=== PATIENT | male | born 1935 | race Caucasian/White ===

== ENCOUNTER 2017-07-11 06:46 | Emergency (ER) | payer MEDICARE, OTHER ==
[2017-07-11] MEDS ORDERED: Sodium Chloride 0.9% 1,000 ML IV ONE (07:40)
[2017-07-11] MEDS ORDERED: Metoprolol Succinate 25 MG Tab.ER PO ONE (07:42)
--- NOTE | 2017-07-11 07:52 | EDM.PDOC ---
<Sukhwinder Stoddard - Last Filed: 07/11/17 07:42> ED HPI GENERAL MEDICAL PROBLEM - General Chief Complaint: Abdominal Pain Stated Complaint: lower abd pain Time Seen by Provider: 07/11/17 07:39 Source of Information: Reports: Patient History Limitations: Reports: No Limitations - History of Present Illness INITIAL COMMENTS - FREE TEXT/NARRATIVE: Patient is a 82-year-old gentleman who presents to the emergency department this morning with a complaint of abdominal pain. Patient states that he developed periumbilical abdominal pain described as a bubble with pressure at 4 PM yesterday. Patient states that he normally has bowel movements 2-3 times a day, but has not had a bowel movement over 24 hours. Patient states that pain has gradually increased and he was unable to sleep during the night. Pain now extending to lower abdomen and left flank. Patient was concerned because this is not normal for him. Patient did have some nausea without vomiting. Patient denies fever, chest pain, shortness of breath, blood in stool, dysuria, or out of country travel. Onset: Gradual Onset Date: 07/10/17 Onset Time: 16:00 Duration: Hour(s): Location: Reports: Abdomen Quality: Reports: Ache, Other (Fullness) Improves with: Reports: None Worsens with: Reports: None Associated Symptoms: Reports: Nausea/Vomiting Left Upper Abdomen Pain Score (Numeric/FACES): 8 - Related Data Allergies Allergy/AdvReac Type Severity Reaction Status Date / Time [id number]-[id number] Reductase Allergy CONTRAINDIC Verified 07/11/17 06:49 Inhibitor ATION/INTOL ERANCE Home Meds: Home Meds Cholecalciferol (Vitamin D3) [Vitamin D3] 2,000 units PO DAILY 06/13/13 [History ] Ezetimibe [Zetia] 10 mg PO DAILY 06/13/13 [History] Finasteride [Proscar] 5 mg PO DAILY 06/13/13 [History] Lutein/Min/Vit C/Vit E Acetate [Ocuvite Lutein] 1 cap PO DAILY 06/13/13 [History ] Metoprolol Tartrate 12.5 mg PO BID 06/13/13 [History] Multivit-Min/FA/Lycopene/Lut [Centrum Silver] 1 each PO DAILY 06/13/13 [History] Nitroglycerin [Nitrostat] 0.4 mg SL ASDIRECTED PRN 06/13/13 [History] Tamsulosin [Flomax] 0.4 mg PO DAILY 06/13/13 [History] Aspirin 81 mg PO DAILY 06/29/17 [History] Diclofenac Sodium [IMW: Diclofenac Sodium] 75 mg PO .TWICE DAILY W MEALS [History] Iron Polysaccharide Complex [Poly-Iron] 150 mg PO DAILY 06/29/17 [History] Oxybutynin [Oxybutynin ER] 5 mg PO DAILY 06/29/17 [History] Bimatoprost [LUMIGAN 0.01% Ophth Soln] 1 drop EYEBOTH BEDTIME 07/11/17 [History] Cyclobenzaprine HCl 5 - 10 mg PO TID PRN 07/11/17 [History] Denosumab [Prolia] 60 mg SQ ASDIRECTED 07/11/17 [History] metFORMIN HCl [Metformin HCl] 1,000 mg PO BEDTIME 07/11/17 [History] metFORMIN HCl [Metformin HCl] 500 mg PO DAILY 07/11/17 [History] traZODone 50 mg PO BEDTIME 07/11/17 [History] Social & Family History - Tobacco Use Smoking Status *Q: Former Smoker Years of Tobacco use: 30 Used Tobacco, but Quit: Yes Month/Year Tobacco Last Used: 1979 Second Hand Smoke Exposure: No - Caffeine Use Caffeine Use: Reports: Coffee, Soda - Alcohol Use Days Per Week of Alcohol Use: 1 Number of Drinks Per Day: 1 Total Drinks Per Week: 1 - Recreational Drug Use Recreational Drug Use: No - Living Situation & Occupation Living situation: Reports: Single Occupation: Retired ED ROS GENERAL - Review of Systems Review Of Systems: ROS reveals no pertinent complaints other than HPI. Constitutional: Reports: No Symptoms HEENT: Reports: No Symptoms Respiratory: Reports: No Symptoms Cardiovascular: Reports: No Symptoms Endocrine: Reports: No Symptoms GI/Abdominal: Reports: Abdominal Pain, Constipation, Nausea. Denies: Black Stool, Bloody Stool, Vomiting : Reports: No Symptoms Musculoskeletal: Reports: No Symptoms Skin: Reports: No Symptoms Neurological: Reports: No Symptoms Psychiatric: Reports: No Symptoms Hematologic/Lymphatic: Reports: No Symptoms Immunologic: Reports: No Symptoms ED EXAM, GI/ABD - Physical Exam Exam: See Below Exam Limited By: No Limitations General Appearance: Alert, WD/WN, No Apparent Distress Eyes: Bilateral: Normal Appearance Nose: Normal Inspection, Normal Mucosa, No Blood Throat/Mouth: Normal Inspection, Normal Oropharynx, No Airway Compromise Head: Atraumatic, Normocephalic Neck: Normal Inspection, Supple, Non-Tender Respiratory/Chest: No Respiratory Distress, Lungs Clear, Normal Breath Sounds, No Accessory Muscle Use, Chest Non-Tender Cardiovascular: Regular Rate, Rhythm, No Murmur GI/Abdominal Exam: Normal Bowel Sounds, Soft, Non-Tender Back Exam: CVA Tenderness (L). No: CVA Tenderness (R) Extremities: Normal Inspection, No Pedal Edema Neurological: Alert, Oriented, Normal Cognition Psychiatric: Normal Affect, Normal Mood Skin Exam: Warm, Dry, Intact, Normal Color, No Rash Lymphatic: No Adenopathy Course - Vital Signs Last Recorded V/S: Last Vital Signs Temp 96.4 F 07/11/17 06:53 Pulse 102 H 07/11/17 07:53 Resp 20 07/11/17 07:25 BP 179/78 H 07/11/17 07:53 Pulse Ox 94 L 07/11/17 07:25 - Orders/Labs/Meds Orders: Active Orders 24 hr Category Date Time Status Peripheral IV Care [RC] . DIRECTED Care 07/11/17 07:09 Active Abdomen Pelvis w Cont [CT] Stat Exams 07/11/17 07:40 Ordered COMPREHENSIVE METABOLIC PN,CMP [CHEM] Stat Lab 07/11/17 07:05 Ordered UA W/MICROSCOPIC [URIN] Stat Lab 07/11/17 08:40 Ordered Sodium Chloride 0.9% [Syrex Flush] Med 07/11/17 07:08 Active 5 ml FLUSH Q8HR PRN Peripheral IV Insertion Adult [OM.PC] Stat Oth 07/11/17 07:08 Ordered Medication Orders Sodium Chloride (Syrex Flush) 5 ml FLUSH Q8HR PRN PRN Reason: Keep Vein Open Labs: Laboratory Tests 07/11/17 07/11/17 07/11/17 Range/Units 07:05 07:05 08:40 WBC 20.9 H D (5.0-10.0) 10^3/uL RBC 5.02 (4.50-6.00) 10^6/uL Hgb 16.5 D (13.0-17.0) g/dL Hct 49.6 (40.0-52.0) % MCV 98.9 H (82.0-92.0) fL MCH 32.9 H (27.0-31.0) pg MCHC 33.2 (32.0-36.0) g/dL RDW 12.6 (11.5-14.5) % Plt Count 257 (150-300) 10^3/uL MPV 7.8 (7.4-10.4) fL Neut % (Auto) 89.5 H (50.0-70.0) % Lymph % (Auto) 4.1 L (20.0-40.0) % [place] % (Auto) 6.2 (2.0-8.0) % Eos % (Auto) 0.2 L (1.0-3.0) % Baso % (Auto) 0.0 (0.0-1.0) % Neut # (Auto) 18.7 H (2.5-7.0) 10^3/uL Lymph # (Auto) 0.9 L (1.0-4.0) 10^3/uL [place] # (Auto) 1.3 H (0.1-0.8) 10^3/uL Eos # (Auto) 0.0 L (0.1-0.3) 10^3/uL Baso # (Auto) 0.0 (0.0-0.1) 10^3/uL Sodium 134 L (136-145) mmol/L Potassium 4.6 (3.3-5.3) mmol/L Chloride 103 (98-115) mmol/L Carbon Dioxide 23.7 (21.0-32.0) mmol/L BUN 37 H (6-25) mg/dL Creatinine 1.73 H (0.51-1.17) mg/dL Est Cr Clr Drug Dosing 31.79 mL/min Estimated GFR (MDRD) 38 mL/min Glucose 189 H (70-110) mg/dL Calcium 9.3 (8.7-10.3) mg/dL Total Bilirubin 2.4 H (0.2-1.0) mg/dL AST 28 (15-37) U/L ALT 38 (12-78) U/L Alkaline Phosphatase 49 (46-116) IU/L Total Protein 7.5 (6.4-8.2) g/dL Albumin 3.64 (3.00-4.80) g/dL Specimen Type Urincc Urine Color Yellow (YELLOW) Urine Appearance Slightly cloudy H (CLEAR) Urine pH 6.0 (5.0-9.0) Ur Specific [place] 1.025 (1.005-1.030) Urine Protein 100 H (NEGATIVE) mg/dL Urine Glucose (UA) Negative (NEGATIVE) mg/dL Urine Ketones 15 H (NEGATIVE) mg/dL Urine Occult Blood Small H (NEGATIVE) Urine Nitrite Negative (NEGATIVE) Urine Bilirubin Negative (NEGATIVE) Urine Urobilinogen 0.2 (0.2-1.0) E.U./dL Ur Leukocyte Esterase Trace H (NEGATIVE) Urine RBC 5-10 H /HPF Urine WBC 50-75 H /HPF Ur Epithelial Cells Few /LPF Urine Bacteria Few (NONE TO FEW) /HPF Meds: Medications Generic Name Dose Route Start Last Admin Trade Name Freq PRN Reason Stop Dose Admin Sodium Chloride 5 ml 07/11/17 07:08 Syrex Flush FLUSH Q8HR PRN Keep Vein Open Discontinued Medications Generic Name Dose Route Start Last Admin Trade Name Freq PRN Reason Stop Dose Admin Sodium Chloride 1,000 mls @ 999 mls/hr 07/11/17 07:40 07/11/17 07:37 Normal Saline IV 07/11/17 08:40 999 mls/hr .BOLUS ONE Administration Metoprolol Succinate 12.5 mg 07/11/17 07:42 07/11/17 07:53 Toprol Xl PO 07/11/17 07:43 12.5 mg ONETIME ONE Administration Ondansetron HCl 4 mg 07/11/17 08:10 07/11/17 08:15 Zofran IVPUSH 07/11/17 08:11 4 mg ONETIME ONE Administration - Re-Assessments/Exams Free Text/Narrative Re-Assessment/Exam: 07/11/17 08:30 Case discussed with Nicolás. Patient will be followed and care assumed by him. Departure - Departure Disposition: DC/Tfer to Acute Hospital 02 Clinical Impression: Left ureteral stone, Ureteral stone with hydronephrosis - Discharge Information Referrals: Shelbie Duran MD [Primary Care Provider] - Forms: ED Department Discharge Additional Instructions: 1. Go to the [facility] in [place] where you will be under the care of Dr. Koenig and Dr. Reed. 2. 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 I feel this is very unlikely as we discussed. <Zelalem Roldan - Last Filed: 07/11/17 11:31> Course - Re-Assessments/Exams Free Text/Narrative Re-Assessment/Exam: 07/11/17 09:05 Labs show WBC 20.9 with ANC 18.7. I noticed he had similar labs 4 years ago so questioned patient and reviewed old ER note; he had similar symptoms and a left kidney stone at that time. He was discharged to home and saw Dr. Miner a couple days later for follow up. Patient doesn't remember if the 6mm stone passed on its own or had to be removed. Patient is quite comfortable right now and says the pain today isn't as severe as it was 4 years ago. No analgesics have been administered today. 07/11/17 09:40 CT today shows a 6 mm stone again. Discussed this with patient. He now remembers that the last stone did have to be removed in [place]. I called [facility] to speak with on-call urology but Dr. Koenig is in a procedure and will call back. Patient is comfortable. 07/11/17 10:42 Patient is NPO since last evening. Dr. Koenig called and I discussed case with him and hospitalist, Dr. Reed. They accepted for transfer, recommended Rocephin now, and will likely place a stent prior to stone removal due to the elevated WBC. Patient is very comfortable and definitely feels like he could drive himself to [place]. He has no immediate family in the area. Rocephin is in. I feel he is stable to drive himself to [place] for this procedure. The last time he had this he went home for a day or two then drove to [place] for treatment; his WBC was similar to today and pain was much worse last time. Considering all of this I feel it is reasonable to allow patient to drive himself as he desires. Departure - Departure Time of Disposition: 11:22 Condition: Good
[2017-07-11] MEDS ORDERED: Ondansetron 4 MG/2 ML SDV IVPUSH ONE (08:10)
[2017-07-11 09:26] VITALS: BP 162/85
[2017-07-11] MEDS ORDERED: cefTRIAXone 2 GM Vial IVPUSH ONE (10:06)
[2017-07-11] MEDS: Sodium Chloride 0.9% 5 ML Syringe FLUSH PRN ×2 (10:26→10:32)
== END 2017-07-11 11:20 ==
LOC: KA.ED 06:46
DX: N13.2 Hydronephrosis with renal and ureteral calculous obstruction (principal); Z88.8 Allergy status to other drugs, medicaments and biological substances; Z79.82 Long term (current) use of aspirin; Z79.899 Other long term (current) drug therapy; Z87.891 Personal history of nicotine dependence
CPT/HCPCS: 36415; 74176; 80053; 81001; 85025; 96361; 96374; 96375; 99285; A9270-GY; J0696; J2405; J7030

== ENCOUNTER 2017-07-25 07:47 | Day surgery (SDC) | payer MEDICARE, OTHER ==
[~2017-07-25 07:47] MED LIST: Sodium Chloride 0.9% 1,000 ML IV SCH; Sodium Chloride 0.9% 5 ML Syringe FLUSH PRN
[2017-07-25] MEDS ORDERED: Sodium Chloride 0.9% 5 ML Syringe FLUSH PRN (08:00)
[2017-07-25] MEDS ORDERED: Sodium Chloride 0.9% 1,000 ML IV SCH (08:00)
[2017-07-25] MEDS ORDERED: EPINEPHrine 1:10,000 1 MG/10 ML Syringe ONE (08:19)
[2017-07-25] MEDS ORDERED: fentaNYL 100 MCG/2 ML SDV ONE (08:24)
[2017-07-25] MEDS ORDERED: Propofol 200 MG/20 ML SDV ONE (08:24)
[2017-07-25] MEDS ORDERED: Midazolam 1 MG/ML 2 ML SDV ONE (08:24)
[2017-07-25] MEDS ORDERED: fentaNYL 100 MCG/2 ML SDV IV ONE (09:30)
[2017-07-25] MEDS ORDERED: Propofol 200 MG/20 ML SDV IV ONE (09:30)
[2017-07-25] MEDS ORDERED: Midazolam 1 MG/ML 2 ML SDV IV ONE (09:30)
--- NOTE | 2017-07-25 10:08 | PCM.OPNOTE ---
- General Post-Op/Procedure Note Date of Surgery/Procedure: 07/25/17 Operative Procedure(s): Upper GI endoscopy and polypectomy Findings: This patient has evidence of mild antral gastritis. Also a small polyp was noted in the antrum. Polypectomy is performed using a hot biopsy forceps application of resolution clip to prevent post biopsy bleeding as the patient has been on aspirin and Plavix. Anesthesia Technique: Moderate Sedation Primary Surgeon: Shelbie Duran Complications: None Condition: Good Free Text/Narrative:: INFORMED CONSENT: Patient is here today for elective upper GI endoscopy. All aspects of this procedure have been discussed with the patient. All possible complications also, including possibility of perforation, infection, pain, bleeding, numbness of the throat, swallowing difficulty and unknown complications. In the event of perforation the patient may need surgical exploration to repair the defect. The patient understands fully well. Patient did not have any further questions for me at the end of my interview. The patient wishes for me to proceed. INSTRUMENT USED: Video gastroscope ANESTHESIA: [Monitored anesthesia care] ASA CLASSIFICATION: [2] PROCEDURE PERFORMED: [Upper GI endoscopy with polypectomy issue resolution clip ] PHARYNX: Normal. ESOPHAGUS: Normal. Proximal: Normal. Middle: Normal. Lower: Normal. GE [place]unction: Normal. STOMACH: Normal. Cardia: Normal. Fundus: Normal. Lesser Curvature: Normal. Greater Curvature: Normal. Antrum: Moderate inflammation is noted. A small polyp was also noted. This polyp was removed using the hot biopsy forceps and application of a resolution clip to prevent postprocedure bleeding has the patient will be taking aspirin and Plavix afterwards. Pylorus: Normal. DUODENUM: Normal. First Part: Normal. Second Part: Normal. Third Part: Normal. RETROFLEXION: Normal. BIOPSY: None. TOLERANCE: Excellent. COMPLICATIONS: None. Final diagnosis: Moderate antral gastritis and small antral gastric polyp. Biopsies are pending.
[2017-07-25 10:58] VITALS: BP 122/68
== END 2017-07-25 11:13 | disposition home or self-care (01) ==
LOC: KA.SDS 07:47
PROVIDERS: ATTEND Family Medicine
DX: K29.70 Gastritis, unspecified, without bleeding (principal); B96.81 Helicobacter pylori [H. pylori] as the cause of diseases classified elsewhere; K31.7 Polyp of stomach and duodenum; E11.9 Type 2 diabetes mellitus without complications; I10 Essential (primary) hypertension; I25.10 Atherosclerotic heart disease of native coronary artery without angina pectoris; I25.2 Old myocardial infarction; M25.561 Pain in right knee; E78.5 Hyperlipidemia, unspecified; Z79.82 Long term (current) use of aspirin; Z79.01 Long term (current) use of anticoagulants; Z79.84 Long term (current) use of oral hypoglycemic drugs; Z88.8 Allergy status to other drugs, medicaments and biological substances
CPT/HCPCS: 00731; 82962; 93005; J2250; J2704; J3010; J7030

== ENCOUNTER 2019-12-22 10:39 | Emergency (ER) | payer MEDICARE, OTHER ==
[2019-12-22] MEDS ORDERED: Albuterol/Ipratropium 3.0-0.5 MG/3 ML Neb Soln NEB ONE ×2 (11:14→11:15)
[2019-12-22] MEDS ORDERED: Sodium Chloride 0.9% 1,000 ML ONE (11:29)
--- NOTE | 2019-12-22 11:36 | CR ---
[id number] RAD/RAD Chest PA And Lateral EXAM: RAD Chest PA And Lateral INDICATION: DIFFICULTY BREATHING. COMPARISON: May 2012. DISCUSSION: Cardiomegaly and central vascular congestion. Slightly asymmetric left greater than right parenchymal opacities most prominent in the left mid and lower lung. Differential diagnosis includes pulmonary edema versus pneumonia. IMPRESSION: As above. Felipe Kwong MD 12/22/19 1136 Thank you for allowing us to participate in the care of your patient.
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
[2019-12-22 11:40] LABS: ANION GAP 19.4 mmol/L (5-15)
[2019-12-22] MEDS ORDERED: Sodium Chloride 0.9% 1,000 ML IV ONE ×2 (11:45→13:45)
[2019-12-22 12:07] VITALS: PULSE 99
[2019-12-22 13:27] VITALS: BP 161/74
[2019-12-22] MEDS ORDERED: Azithromycin 250 MG Tab PO ONE (13:27)
[2019-12-22] MEDS ORDERED: cefTRIAXone 1 GM Vial IVPUSH ONE (13:27)
== END 2019-12-22 14:00 ==
LOC: KA.ED 10:39
DX: U07.1 COVID-19 (principal); J12.89 Other viral pneumonia; R09.02 Hypoxemia; I25.10 Atherosclerotic heart disease of native coronary artery without angina pectoris; I10 Essential (primary) hypertension; I25.2 Old myocardial infarction; N40.1 Benign prostatic hyperplasia with lower urinary tract symptoms; R33.8 Other retention of urine; M19.90 Unspecified osteoarthritis, unspecified site; E11.9 Type 2 diabetes mellitus without complications; Z88.8 Allergy status to other drugs, medicaments and biological substances; Z79.899 Other long term (current) drug therapy; Z79.82 Long term (current) use of aspirin; Z79.84 Long term (current) use of oral hypoglycemic drugs; Z95.5 Presence of coronary angioplasty implant and graft
CPT/HCPCS: 36415; 71046; 80053; 81001; 83605; 83880; 85025; 87040; 96361; 96374; 99284; 99285-25; A9270-GY; J0696; J7030; J7620-GY; U0002